=== PATIENT | female | born 1995 | race Caucasian/White ===

== ENCOUNTER 2019-10-06 16:50 | Emergency (ER) | payer OTHER ==
[2019-10-06 17:03] VITALS: BP 141/99
[2019-10-06] MEDS ORDERED: LIDOCAINE 2% 10 ML MDV ONE (17:28)
--- NOTE | 2019-10-06 17:56 | ED Physician Documentation ---
History of Present Illness - Stated complaint Stated Complaint: UNABLE TO STRAIGHTEN R MID FINGER - Chief complaint Chief Complaint: Ext Problem - History obtained from History obtained from: Patient, Family - History of Present Illness Timing: Today Pain level max: 5 Pain level now: 5 - Additonal information Additional information: R middle finger stuck today. unable to extend. Patient states that this is never happened before. She denies any injury. She works as a bank clerk. Worse with movement. Better with rest. No trauma. Review of Systems Constitutional: denies: Fever, Chills GI: denies: Nausea, Vomiting : denies: Now EGA Neurologic: denies: Focal weakness, Numbness PD PAST MEDICAL HISTORY - Past Medical History Past Medical History: Yes Endocrine/Autoimmune: Type 1 diabetes - Present Medications Home Medications: Ambulatory Orders Medication Instructions Recorded Confirmed Atorvastatin [Lipitor] 0 mg PO DAILY 10/06/19 10/06/19 Insulin Lispro [Humalog] 60 units SQ DAILY 10/06/19 10/06/19 Levothyroxine [Synthroid] 25 mcg PO QDAC 10/06/19 10/06/19 Lisinopril 10/06/19 - Allergies Allergies/Adverse Reactions: Allergies Allergy/AdvReac Type Severity Reaction Status Date / Time No Known Drug Allergies Allergy Verified 10/06/19 17:01 - Living Situation Living Situation: reports: With family Living Arrangement: reports: At home - Social History Does the pt have substance abuse?: No - Family History Family history: reports: Non contributory PD ED PE NORMAL - Vitals Vital signs reviewed: Yes - General General: Alert and oriented X 3, No acute distress, Well developed/nourished - HEENT HEENT: Moist mucous membranes - Neck Neck: Supple, no meningeal sign - Derm Derm: Warm and dry - Extremities Extremities: Other (R middle finger contractured. no deformity. NVI.) - Neuro Neuro: Alert and oriented X 3 Results - Vitals Vitals: Vital Signs - 24 hr 10/06/19 17:01 Temperature 36.9 C Heart Rate 106 H Respiratory 18 Rate Blood Pressure 141/99 H O2 Saturation 100 Oxygen O2 Source Room air PD MEDICAL DECISION MAKING - ED course Complexity details: considered differential, d/w patient, d/w family ED course: 24-year-old female with what appears to be a contracture of the right middle finger. Digital block was performed and the finger was gently stretched and extended. Will place in a splint and encouraged gentle stretching at home. We will have her follow-up with her doctor for further care. Patient counseled regarding signs and symptoms for which I believe and urgent re-evaluation would be necessary. Patient with good understanding of and agreement to plan and is comfortable going home at this time This document was made in part using voice recognition software. While efforts are made to proofread this document, sound alike and grammatical errors may occur. Departure - Departure Disposition: 01 Home, Self Care Clinical Impression: Contracture of joint of finger of right hand Condition: Good Instructions: Contracture Dupuytren, Contracture Dupuytren Tx Follow-Up: Provider,Other [Primary Care Provider] - Within 1 week Comments: Continue to gently stretch the hand. This will help to stretch the tendons. Follow-up with your doctor for further care. You can wear the splint for the next 2 to 3 days. Discharge Date/Time: 10/06/19 18:04
== END 2019-10-06 18:04 | disposition home or self-care (01) ==
LOC: ED 16:50
DX: M24.541 Contracture, right hand (principal); E10.9 Type 1 diabetes mellitus without complications; Z79.4 Long term (current) use of insulin
CPT/HCPCS: 99281; 99282